=== PATIENT | male | born 1990 | race Caucasian/White ===

== ENCOUNTER 2022-11-30 07:02 | Emergency (ER) | payer OTHER ==
[~2022-11-30] VITALS: Ht 165.1 cm; Wt 68.2 kg
[~2022-11-30 07:02] MED LIST: PERC5TAB12 PO; tylenol #4 OR
[2022-11-30] MEDS ORDERED: ACETAMINOPHEN 500 MG TAB PO ONE (08:30)
[2022-11-30] MEDS ORDERED: HYDR-3713 PO (08:37)
[2022-11-30 08:50] VITALS: BP 123/79; TEMP 98.8; O2SAT 99
[2022-12-01] MEDS ORDERED: HYDR-3713 PO (00:19)
[2022-12-01] MEDS ORDERED: CLEO300C2 PO (05:01)
[2022-12-01] MEDS ORDERED: IBUP80TA PO (05:01)
== END 2022-11-30 08:58 | disposition home or self-care (01) ==
LOC: M ED 07:02
DX: K02.9 Dental caries, unspecified (principal); K08.89 Other specified disorders of teeth and supporting structures

== ENCOUNTER 2022-12-01 00:05 | Emergency (ER) | payer OTHER ==
[~2022-12-01] VITALS: Ht 167.6 cm; Wt 68.3 kg
[2022-12-01 00:05] VITALS: BP 129/83; TEMP 98.5; O2SAT 98
[~2022-12-01 00:05] MED LIST changes: +HYDR-3713 PO
[2022-12-01] MEDS ORDERED: HYDR-3713 PO (00:19)
[2022-12-01] MEDS ORDERED: OXYCODONE/APAP 5MG/325MG(HOME DOSE PACK) PO ONE (05:00)
[2022-12-01] MEDS ORDERED: KETOROLAC 60MG 2ML VIAL IM ONE (05:00)
[2022-12-01] MEDS ORDERED: CLINDAMYCIN 150MG CAPSULE PO ONE (05:00)
[2022-12-01] MEDS ORDERED: IBUP80TA PO (05:01)
[2022-12-01] MEDS ORDERED: CLEO300C2 PO (05:01)
== END 2022-12-01 05:43 | disposition home or self-care (01) ==
LOC: M ED 00:05
DX: K08.89 Other specified disorders of teeth and supporting structures (principal); K05.6 Periodontal disease, unspecified; F17.200 Nicotine dependence, unspecified, uncomplicated
CPT/HCPCS: 96372; 99282; J1885

== ENCOUNTER → 2023-11-11 | Outpatient (REF) ==
[~2023-11-11] MED LIST changes: +AMOX500C; +AMOX875T2 PO; +CLEO300C2 PO; +IBUP80TA PO; +KETO10TAB PO
== END ==
LOC: M LAB 12:50
PROVIDERS: ATTEND Nurse Practitioner Adult Health
DX: Z02.89 Encounter for other administrative examinations (principal)

== ENCOUNTER 2023-11-24 21:38 | Emergency (ER) | payer MEDICAID, OTHER ==
[~2023-11-24] VITALS: Ht 165.1 cm; Wt 63.6 kg
[2023-11-25] MEDS ORDERED: LIDOCAINE W/EPINEPHRINE 1% 20ML VIAL SC ONE (01:15)
[2023-11-25] MEDS ORDERED: AMOX875T2 PO (01:21)
[2023-11-25] MEDS: AUGMENTIN 875 MG TAB PO ONE (01:25)
[2023-11-25] MEDS: ACETAMINOPHEN 500 MG TAB PO ONE (01:26)
[2023-11-25 01:53] VITALS: BP 114/74; TEMP 97.2; O2SAT 98
== END 2023-11-25 02:13 | disposition home or self-care (01) ==
LOC: M ED 21:38
DX: S51.852A Open bite of left forearm, initial encounter (principal); W54.0XXA Bitten by dog, initial encounter; Y92.009 Unspecified place in unspecified non-institutional (private) residence as the place of occurrence of the external cause; Y93.89 Activity, other specified; Y99.9 Unspecified external cause status

== ENCOUNTER 2023-11-26 01:22 | Emergency (ER) | payer OTHER ==
[~2023-11-26] VITALS: Ht 165.1 cm; Wt 64.5 kg
[2023-11-26 04:30] VITALS: BP 125/75; TEMP 97.7; O2SAT 99
[2023-11-26] MEDS: BOOSTRIX VACCINE (TETANUS/DIPHTH/ACEL. PERTUSSIS) 0.5ML SYR IM.IMMUN ONE (04:59)
== END 2023-11-26 05:06 | disposition home or self-care (01) ==
LOC: M ED 01:22
DX: Z48.00 Encounter for change or removal of nonsurgical wound dressing (principal)

== ENCOUNTER 2023-11-30 22:42 | Emergency (ER) | payer OTHER ==
[~2023-11-30] VITALS: Ht 165.1 cm; Wt 66.0 kg
[2023-11-30 23:10] VITALS: BP 127/80; TEMP 98; O2SAT 99
== END 2023-12-01 02:32 | disposition left against medical advice (07) ==
LOC: M ED 22:42
DX: F22 Delusional disorders (principal); Z53.9 Procedure and treatment not carried out, unspecified reason

== ENCOUNTER 2023-12-01 10:17 | Inpatient (IN) | payer MEDICAID, OTHER ==
[~2023-12-01] VITALS: Ht 165.1 cm; Wt 61.9 kg
[2023-12-01] MEDS ORDERED: HOME MED LIST COMPLETE! XX SCH (12:50)
[2023-12-01 13:30] LABS: HEMOGLOBIN 14.9 g/dl (13.5-17.5); MEAN CORPUSCULAR HEMOGLOBIN 31.2 pg (27.0-33.0); MEAN CORPUSCULAR HGB CONC 34.7 g/dl (32.0-36.5); PLATELET COUNT, AUTOMATED 328 10^3/uL (150-450); RED BLOOD COUNT 4.78 10^6/uL (4.30-6.10); WHITE BLOOD COUNT 11.8 10^3/uL (4.0-10.0)
[2023-12-01 13:59] LABS: ETHYL ALCOHOL (ETHANOL) < 0.003 % (0.000-0.010)
[2023-12-01 14:01] LABS: ALBUMIN 4.7 G/DL (3.2-5.2); ALKALINE PHOSPHATASE 78 U/L (46-116); ALT/SGPT 16 U/L (7.0-40); AST/SGOT 11 U/L (<34); BILIRUBIN,DIRECT 0.3 MG/DL (<0.4); BILIRUBIN,TOTAL 0.7 MG/DL (0.3-1.2); BLOOD UREA NITROGEN 15 MG/DL (9-23); CALCIUM LEVEL 10.1 MG/DL (8.5-10.1); CARBON DIOXIDE LEVEL 28 MMOL/L (20-31); CHLORIDE LEVEL 102 MMOL/L (98-107); CREATININE FOR GFR 0.81 MG/DL (0.70-1.30); GLOMERULAR FILTRATION RATE > 60.0 (>60); GLUCOSE, FASTING 98 MG/DL (60-100); POTASSIUM SERUM 3.9 MMOL/L (3.5-5.1); SALICYLATE LEVEL < 3.0 MG/DL (<30); SODIUM LEVEL 137 MMOL/L (136-145); TOTAL PROTEIN 7.6 G/DL (5.7-8.2)
[2023-12-01 14:03] LABS: THYROID STIMULATING HORMONE 0.824 uIU/ML (0.55-4.78)
[2023-12-01 14:28] LABS: HIV 1&2 SCREEN NEGATIVE (NEGATIVE)
[2023-12-01 15:13] LABS: AMPHETAMINES LEVEL URINE NEGATIVE (NEGATIVE); BARBITURATES URINE NEGATIVE (NEGATIVE); BENZODIAZEPINES URINE NEGATIVE (NEGATIVE); COCAINE METABOLITE URINE NEGATIVE (NEGATIVE)
[2023-12-01 15:14] LABS: CANNABINOIDS URINE POSITIVE (NEGATIVE); METHADONE URINE NEGATIVE (NEGATIVE); OPIATES URINE NEGATIVE (NEGATIVE); PHENCYCLIDINE URINE NEGATIVE (NEGATIVE)
[2023-12-01] MEDS: OLANZapine ORAL DISINTEGRATING TAB 5MG PO ONE (18:30)
[2023-12-01] MEDS ORDERED: ACETAMINOPHEN TAB 650MG DOSE (2X325MG) PO PRN (21:00)
[2023-12-01] MEDS ORDERED: IBUPROFEN 400MG TAB PO PRN (21:00)
[2023-12-01] MEDS ORDERED: MAALOX 30 ML SUSP *UDC PO PRN (21:00)
[2023-12-01] MEDS ORDERED: diphenhydrAMINE 25MG CAP PO PRN (21:00)
[2023-12-01] MEDS ORDERED: MOM 30ML SUSPENSION UDC PO PRN (21:00)
[2023-12-01] MEDS ORDERED: traZODone 50 MG TAB PO PRN (21:00)
[2023-12-02 06:28] VITALS: BP 129/81; TEMP 97.7; O2SAT 95
[2023-12-02] MEDS: OLANZapine 5 MG TAB PO SCH (09:00)
[2023-12-02 17:55] VITALS: BP 137/85; TEMP 97.3
[2023-12-03 06:18] VITALS: BP 108/66; TEMP 98.6; O2SAT 100
[2023-12-03 18:24] VITALS: BP 110/74; TEMP 97.2
[2023-12-04 06:13] VITALS: BP 108/69; TEMP 98; O2SAT 100
[2023-12-04 16:29] VITALS: BP 135/73; TEMP 98.1; O2SAT 100
[2023-12-05 06:21] VITALS: BP 121/79; TEMP 97.7; O2SAT 100
[2023-12-05 16:21] VITALS: BP 116/88; TEMP 98; O2SAT 98
[2023-12-06 06:29] VITALS: BP 111/68; TEMP 98.3; O2SAT 100
[2023-12-06 16:44] VITALS: BP 130/74; TEMP 98; O2SAT 100
[2023-12-07 06:31] VITALS: BP 115/73; TEMP 96.8; O2SAT 100
[2023-12-07 16:08] VITALS: BP 114/78; TEMP 97.9; O2SAT 98
[2023-12-08 06:36] VITALS: BP 120/67; TEMP 97.9; O2SAT 100
[2023-12-08 18:57] VITALS: BP 127/78; TEMP 98
[2023-12-09 05:53] VITALS: BP 108/76; TEMP 97.8; O2SAT 100
[2023-12-10 06:41] VITALS: BP 108/65; TEMP 98.2; O2SAT 100
[2023-12-10 17:41] VITALS: BP 120/79; TEMP 98.2
[2023-12-11 06:30] VITALS: BP 152/78; TEMP 97.2; O2SAT 100
[2023-12-11 09:21] VITALS: BP 143/76; TEMP 97.4; O2SAT 100
[2023-12-11 18:54] VITALS: BP 136/83; TEMP 97.6; O2SAT 100
[2023-12-12 17:21] VITALS: BP 127/80; TEMP 97.6; O2SAT 100
[2023-12-13 06:22] VITALS: BP 115/64; TEMP 97.9; O2SAT 100
[2023-12-13 16:55] VITALS: BP 119/72; TEMP 97.4; O2SAT 100
[2023-12-14 06:23] VITALS: BP 115/73; TEMP 98.5; O2SAT 100
[2023-12-14 09:33] VITALS: BP 115/73; TEMP 98.5; O2SAT 100
[2023-12-14 18:05] VITALS: BP 137/87; TEMP 97.7; O2SAT 99
[2023-12-15 06:14] VITALS: BP 114/88; TEMP 98; O2SAT 100
[2023-12-15 18:04] VITALS: BP 110/82; TEMP 98.2
[2023-12-16 06:34] VITALS: BP 136/82; TEMP 97.3; O2SAT 97
[2023-12-16 18:24] VITALS: BP 140/81; TEMP 97.8
[2023-12-17 06:13] VITALS: BP 138/84; TEMP 98; O2SAT 99
[2023-12-17 17:38] VITALS: BP 130/82; TEMP 97.2; O2SAT 100
[2023-12-18 06:25] VITALS: BP 110/69; TEMP 98.4; O2SAT 100
[2023-12-18 18:42] VITALS: BP 121/78; TEMP 98.6; O2SAT 100
[2023-12-19 06:23] VITALS: BP 113/75; TEMP 97.1; O2SAT 96
[2023-12-19 16:42] VITALS: BP 139/80; TEMP 96.5; O2SAT 100
[2023-12-20 06:53] VITALS: BP 119/82; TEMP 97.8; O2SAT 98
[2023-12-20 17:42] VITALS: BP 145/95; TEMP 97.6; O2SAT 100
[2023-12-21 06:23] VITALS: BP 105/73; TEMP 97.8; O2SAT 100
[2023-12-21 17:10] VITALS: BP 136/86; TEMP 97.5; O2SAT 96
[2023-12-22 06:28] VITALS: BP 118/77; TEMP 97.9; O2SAT 100
[2023-12-22 19:49] VITALS: BP 138/89; TEMP 97.6
[2023-12-23 06:18] VITALS: BP 132/77; TEMP 97; O2SAT 100
[2023-12-23 17:21] VITALS: BP 125/89; TEMP 97.3; O2SAT 100
[2023-12-24 06:14] VITALS: BP 148/82; TEMP 97.4; O2SAT 100
[2023-12-24 18:39] VITALS: BP 135/90; TEMP 97.8
[2023-12-25 06:04] VITALS: BP 129/77; TEMP 97.9; O2SAT 100
[2023-12-25] MEDS: FLUoxetine 20MG CAP PO SCH (09:43)
[2023-12-25 18:23] VITALS: BP 136/83; TEMP 97.3; O2SAT 98
[2023-12-26 06:03] VITALS: BP 147/79; TEMP 97.1; O2SAT 99
[2023-12-26 15:29] VITALS: BP 128/62; TEMP 98.6; O2SAT 100
[2023-12-26] MEDS: OLANZapine 10 MG TAB PO SCH (20:36)
[2023-12-27 06:24] VITALS: BP 128/90; TEMP 97.4; O2SAT 99
[2023-12-27] MEDS: OLANZapine 5 MG TAB PO SCH (08:31)
[2023-12-27] MEDS: fluPHENAZine 5MG TABLET PO SCH (20:47)
[2023-12-28 06:23] VITALS: BP 128/79; TEMP 97; O2SAT 98
[2023-12-29 06:07] VITALS: BP 133/78; TEMP 97.5; O2SAT 100
[2023-12-29] MEDS: SERTRALINE HCL 50 MG TAB PO SCH (10:42)
[2023-12-29 18:37] VITALS: BP 128/78; TEMP 97.3; O2SAT 99
[2023-12-29] MEDS: OLANZapine 5 MG TAB PO SCH (20:18)
[2023-12-30 06:06] VITALS: BP 137/82; TEMP 97.3; O2SAT 100
[2023-12-30 16:06] VITALS: BP 143/87; TEMP 98.3; O2SAT 100
[2023-12-31 06:35] VITALS: BP 130/92; TEMP 97.1; O2SAT 100
[2023-12-31] MEDS: SERTRALINE HCL 25 MG TABLET PO SCH (08:54)
[2023-12-31 17:23] VITALS: BP 125/83; TEMP 97.6; O2SAT 99
[2024-01-01 06:41] VITALS: BP 119/81; TEMP 98; O2SAT 98
[2024-01-01] MEDS ORDERED: ZOLO100T PO (13:53)
[2024-01-01] MEDS ORDERED: OLAN1TAB16 PO (13:53)
[2024-01-01 17:32] VITALS: BP 142/87; TEMP 97.9; O2SAT 97
[2024-01-02 06:16] VITALS: BP 120/83; TEMP 97.2; O2SAT 100
[2024-01-02] MEDS: SERTRALINE 100 MG TAB PO SCH (09:09)
== END 2024-01-02 12:51 | disposition home or self-care (01) | DRG 751 ==
LOC: M ED 10:17 → M ED INP 20:56 → M PSY 23:08
PROVIDERS: ADMIT Psychiatry & Neurology Psychiatry; ATTEND Psychiatry & Neurology Child & Adolescent Psychiatry
DX: F29 Unspecified psychosis not due to a substance or known physiological condition (principal); F12.90 Cannabis use, unspecified, uncomplicated; S51.852D Open bite of left forearm, subsequent encounter; Z59.86 Financial insecurity; Z56.0 Unemployment, unspecified; Z63.5 Disruption of family by separation and divorce

== ENCOUNTER → 2024-01-16 | Outpatient (CLI) | payer OTHER ==
[~2024-01-16] MED LIST changes: +OLAN1TAB16 PO; +ZOLO100T PO
[2024-01-16 13:21] LABS: BASO # 0.1 10^3/uL (0.0-0.2); BASO % 1.1 % (0.0-1.0); EOS # 0.3 10^3/uL (0.0-0.5); EOS % 3.6 % (0.0-3.0); HEMATOCRIT 39.2 % (42.0-52.0); LYMPH # 1.7 10^3/uL (1.5-5.0); MEAN CORPUSCULAR HEMOGLOBIN 30.8 pg (27.0-33.0); MEAN CORPUSCULAR HGB CONC 33.2 g/dl (32.0-36.5); MEAN CORPUSCULAR VOLUME 92.9 fl (80.0-96.0); MONO % 10.7 % (2.0-8.0); NEUTROPHILS # 5.8 10^3/uL (1.5-8.5); NEUTROPHILS % 64.3 % (36.0-66.0); PLATELET COUNT, AUTOMATED 287 10^3/uL (150-450); RED BLOOD COUNT 4.22 10^6/uL (4.30-6.10); WHITE BLOOD COUNT 9.1 10^3/uL (4.0-10.0)
[2024-01-16 13:33] LABS: HEMOGLOBIN A1c 5.3 % (4.0-6.0)
[2024-01-16 14:01] LABS: ALBUMIN 3.8 G/DL (3.2-5.2); ALKALINE PHOSPHATASE 109 U/L (46-116); ALT/SGPT 110 U/L (7.0-40); AST/SGOT 49 U/L (<34); BILIRUBIN,TOTAL 0.3 MG/DL (0.3-1.2); BLOOD UREA NITROGEN 16 MG/DL (9-23); CALCIUM LEVEL 9.8 MG/DL (8.5-10.1); CARBON DIOXIDE LEVEL 29 MMOL/L (20-31); CHLORIDE LEVEL 107 MMOL/L (98-107); CHOLESTEROL LEVEL 216 MG/DL (<200); CREATININE FOR GFR 0.87 MG/DL (0.70-1.30); GLOMERULAR FILTRATION RATE > 60.0 (>60); GLUCOSE, FASTING 88 MG/DL (60-100); POTASSIUM SERUM 4.1 MMOL/L (3.5-5.1); SODIUM LEVEL 139 MMOL/L (136-145); TRIGLYCERIDES LEVEL 125 MG/DL (<150)
[2024-01-16 14:02] LABS: THYROID STIMULATING HORMONE 1.927 uIU/ML (0.55-4.78)
[2024-01-16 14:13] LABS: VITAMIN B12 LEVEL 403 PG/ML (211-911)
== END ==
LOC: M PLALAB 11:24
PROVIDERS: ATTEND Student in an Organized Health Care Education/Training Program
DX: Z00.00 Encounter for general adult medical examination without abnormal findings (principal); D72.829 Elevated white blood cell count, unspecified; F29 Unspecified psychosis not due to a substance or known physiological condition; R63.5 Abnormal weight gain

== ENCOUNTER → 2024-11-30 | Outpatient (REF) | payer OTHER | LOC: M SFHCPLAZ 12:37 | PROVIDERS: ATTEND Family Medicine | DX: E55.9 Vitamin D deficiency, unspecified (principal); Z13.21 Encounter for screening for nutritional disorder; R00.2 Palpitations; Z13.1 Encounter for screening for diabetes mellitus ==

== ENCOUNTER → 2024-11-30 | Outpatient (CLI) | payer OTHER ==
[2024-11-30 16:22] LABS: TOTAL 25(OH) VITAMIN D 33.3 NG/ML (20.0-100.0); VITAMIN B12 LEVEL 387.0 PG/ML (211-911)
[2024-11-30 16:24] LABS: FREE T4 1.24 NG/DL (0.89-1.76)
[2024-11-30 17:17] LABS: ESTIMATED AVERAGE GLUCOSE 108.0 MG/DL (60-110)
== END ==
LOC: M PLALAB 13:13
DX: E55.9 Vitamin D deficiency, unspecified (principal)

== ENCOUNTER 2024-12-04 02:29 | Emergency (ER) | payer OTHER ==
[~2024-12-04] VITALS: Ht 167.6 cm; Wt 76.1 kg
[2024-12-04 03:17] LABS: BASO # 0.0 10^3/uL (0.0-0.2); BASO % 0.3 % (0.0-1.0); EOS # 0.0 10^3/uL (0.0-0.5); EOS % 0.1 % (0.0-3.0); LYMPH # 1.3 10^3/uL (1.5-5.0); LYMPH % 13.7 % (24.0-44.0); MONO # 0.7 10^3/uL (0.0-0.8); MONO % 6.7 % (2.0-8.0); NEUTROPHILS # 7.6 10^3/uL (1.5-8.5); NEUTROPHILS % 78.9 % (36.0-66.0); PLATELET COUNT, AUTOMATED 277 10^3/uL (150-450)
[2024-12-04 03:29] LABS: INR 0.96
[2024-12-04 03:41] LABS: CK-MB VALUE MASS < 1.0 NG/ML (<3.6)
[2024-12-04 03:43] LABS: ALT/SGPT 12 U/L (7.0-40); AST/SGOT 17 U/L (<34); CALCIUM LEVEL 9.7 MG/DL (8.5-10.1); CARBON DIOXIDE LEVEL 25 MMOL/L (20-31); CHLORIDE LEVEL 103 MMOL/L (98-107); CPK CREATINE PHOSPHOKINASE 54 U/L (46-171); CREATININE FOR GFR 0.94 MG/DL (0.70-1.30); GLOMERULAR FILTRATION RATE > 90.0 (>60); POTASSIUM SERUM 3.6 MMOL/L (3.5-5.1); SODIUM LEVEL 144 MMOL/L (136-145)
[2024-12-04 04:50] VITALS: TEMP 98.6
[2024-12-04] MEDS ORDERED: ISOVUE-370 76% 100 ML VIAL As Ordered ONE (07:56)
[2024-12-04 09:29] LABS: ETHYL ALCOHOL (ETHANOL) < 0.003 % (0.000-0.010)
[2024-12-04 09:34] LABS: FREE T4 1.42 NG/DL (0.89-1.76)
[2024-12-04 09:39] LABS: CK-MB VALUE MASS < 1.0 NG/ML (<3.6); CPK CREATINE PHOSPHOKINASE 64 U/L (46-171)
[2024-12-04 10:48] LABS: KETONE, URINE AUTO RFX 1+ mg/dL (NEGATIVE); LEUKOCYTE ESTERASE UR AUTO RFX NEGATIVE (NEGATIVE); NITRITE, URINE AUTO RFX NEGATIVE (NEGATIVE); RBC, URINE AUTO RFX 2 /HPF (0-3); WBC, URINE AUTO RFX 1 /HPF (0-3)
[2024-12-04 10:49] LABS: MUCUS, URINE RFX SMALL (NEGATIVE); SQUAM EPITHELIAL CELL UR AURFX 0 /HPF (0-6)
[2024-12-04 11:09] LABS: AMPHETAMINES LEVEL URINE NEGATIVE (NEGATIVE); BARBITURATES URINE NEGATIVE (NEGATIVE); BENZODIAZEPINES URINE NEGATIVE (NEGATIVE); COCAINE METABOLITE URINE NEGATIVE (NEGATIVE); METHADONE URINE NEGATIVE (NEGATIVE); OPIATES URINE NEGATIVE (NEGATIVE); PHENCYCLIDINE URINE NEGATIVE (NEGATIVE)
[2024-12-04 11:10] LABS: CANNABINOIDS URINE POSITIVE (NEGATIVE)
[2024-12-04] MEDS ORDERED: HOME MED LIST COMPLETE! XX SCH (11:20)
[2024-12-04 12:00] VITALS: BP 122/75; O2SAT 95
[2024-12-04 12:02] LABS: Trichomonas vaginalis (AMP) NOT DETECTED (NEGATIVE)
[2024-12-04 12:25] LABS: GC DNA AMPLIFICATION NEGATIVE (NEGATIVE)
== END 2024-12-04 12:50 | disposition home or self-care (01) ==
LOC: M ED 02:29
DX: R07.9 Chest pain, unspecified (principal); R20.2 Paresthesia of skin; I45.10 Unspecified right bundle-branch block; R91.8 Other nonspecific abnormal finding of lung field
CPT/HCPCS: 36415; 70450; 71045; 71275; 80048; 80076; 80307; 81001; 81002; 82077; 82550; 82553; 83690; 84439; 84443; 84484; 85025; 85610; 87661; 87810; 87850; 93005; 99284; Q9967

== ENCOUNTER 2024-12-05 00:35 | Emergency (ER) | payer OTHER ==
[~2024-12-05] VITALS: Ht 167.6 cm; Wt 76.7 kg
[2024-12-05 04:23] LABS: PLATELET COUNT, AUTOMATED 278 10^3/uL (150-450)
[2024-12-05 04:35] LABS: ETHYL ALCOHOL (ETHANOL) < 0.003 % (0.000-0.010)
[2024-12-05 04:36] LABS: CPK CREATINE PHOSPHOKINASE 55 U/L (46-171)
[2024-12-05 04:37] LABS: SALICYLATE LEVEL < 3.0 MG/DL (<30)
[2024-12-05 04:45] LABS: ALT/SGPT 13 U/L (7.0-40); AST/SGOT 18 U/L (<34); CALCIUM LEVEL 10.1 MG/DL (8.5-10.1); CARBON DIOXIDE LEVEL 24 MMOL/L (20-31); CHLORIDE LEVEL 102 MMOL/L (98-107); CREATININE FOR GFR 0.85 MG/DL (0.70-1.30); GLOMERULAR FILTRATION RATE > 90.0 (>60); POTASSIUM SERUM 4.1 MMOL/L (3.5-5.1); SODIUM LEVEL 141 MMOL/L (136-145)
[2024-12-05 04:46] LABS: AMPHETAMINES LEVEL URINE NEGATIVE (NEGATIVE); BARBITURATES URINE NEGATIVE (NEGATIVE); BENZODIAZEPINES URINE NEGATIVE (NEGATIVE); COCAINE METABOLITE URINE NEGATIVE (NEGATIVE); METHADONE URINE NEGATIVE (NEGATIVE); OPIATES URINE NEGATIVE (NEGATIVE); PHENCYCLIDINE URINE NEGATIVE (NEGATIVE)
[2024-12-05 04:47] LABS: CANNABINOIDS URINE POSITIVE (NEGATIVE)
[2024-12-05 13:43] VITALS: TEMP 98.4
[2024-12-05 13:47] VITALS: BP 136/85; O2SAT 98
== END 2024-12-05 13:58 | disposition home or self-care (01) ==
LOC: M ED 00:35
DX: I82.611 Acute embolism and thrombosis of superficial veins of right upper extremity (principal)

== ENCOUNTER 2025-04-12 11:38 | Inpatient (IN) | payer OTHER, MEDICAID ==
[~2025-04-12] VITALS: Ht 165.1 cm; Wt 71.3 kg
[2025-04-12] MEDS ORDERED: HOME MED LIST COMPLETE! XX SCH (12:50)
[2025-04-12 14:11] LABS: PLATELET COUNT, AUTOMATED 315 10^3/uL (150-450)
[2025-04-12 15:20] LABS: ALT/SGPT 16 U/L (7.0-40); AST/SGOT 17 U/L (<34); CALCIUM LEVEL 10.5 MG/DL (8.5-10.1); CARBON DIOXIDE LEVEL 29 MMOL/L (20-31); CHLORIDE LEVEL 102 MMOL/L (98-107); CREATININE FOR GFR 0.79 MG/DL (0.70-1.30); ETHYL ALCOHOL (ETHANOL) < 0.003 % (0.000-0.010); GLOMERULAR FILTRATION RATE > 90.0 (>60); POTASSIUM SERUM 4.6 MMOL/L (3.5-5.1); SALICYLATE LEVEL < 3.0 MG/DL (<30); SODIUM LEVEL 143 MMOL/L (136-145)
[2025-04-12 15:53] LABS: AMPHETAMINES LEVEL URINE NEGATIVE (NEGATIVE); BARBITURATES URINE NEGATIVE (NEGATIVE); BENZODIAZEPINES URINE NEGATIVE (NEGATIVE); CANNABINOIDS URINE NEGATIVE (NEGATIVE); COCAINE METABOLITE URINE NEGATIVE (NEGATIVE); METHADONE URINE NEGATIVE (NEGATIVE); OPIATES URINE NEGATIVE (NEGATIVE); PHENCYCLIDINE URINE NEGATIVE (NEGATIVE)
[2025-04-12] MEDS ORDERED: ACETAMINOPHEN 325 MG TAB PO PRN (16:20)
[2025-04-12] MEDS ORDERED: MAALOX 30 ML SUSP *UDC PO PRN (16:20)
[2025-04-12] MEDS ORDERED: IBUPROFEN 400 MG TAB PO PRN (16:20)
[2025-04-12] MEDS ORDERED: traZODone 50 MG TAB PO PRN (16:20)
[2025-04-12 18:04] VITALS: BP 134/90; TEMP 97.8; O2SAT 99
[2025-04-13 06:26] VITALS: BP 126/86; TEMP 97.6; O2SAT 99
[2025-04-13] MEDS: SERTRALINE HCL 50 MG TAB PO SCH (10:33)
[2025-04-13 15:10] VITALS: BP 120/95; TEMP 97.1; O2SAT 97
[2025-04-14 06:20] VITALS: BP 121/82; TEMP 97.9; O2SAT 99
[2025-04-14 16:26] VITALS: BP 137/84; TEMP 97.6; O2SAT 97
[2025-04-15] MEDS ORDERED: BENZTROPINE 0.5 MG TAB PO PRN (05:35)
[2025-04-15 06:42] VITALS: BP 132/86; TEMP 97; O2SAT 100
[2025-04-15] MEDS: SERTRALINE 100 MG TAB PO SCH (09:37)
[2025-04-15 14:28] VITALS: BP 117/84; TEMP 98.5; O2SAT 98
[2025-04-16 15:16] VITALS: BP 120/88; TEMP 98.3; O2SAT 98
[2025-04-17 06:29] VITALS: BP 119/88; TEMP 97.6; O2SAT 100
[2025-04-17] MEDS: LURASIDONE HCL 20 MG TAB PO SCH (08:08)
[2025-04-17 15:15] VITALS: BP 127/82; TEMP 97.9; O2SAT 98
[2025-04-17] MEDS: MOM 30 ML SUSPENSION UDC PO PRN (21:58)
[2025-04-18 06:41] VITALS: BP 127/81; TEMP 97.5; O2SAT 98
[2025-04-18] MEDS: DOCUSATE SODIUM 100 MG CAPSULE PO PRN (09:57)
[2025-04-18 15:07] VITALS: BP 136/84; TEMP 97.4; O2SAT 98
[2025-04-18] MEDS: BISACODYL 5 MG TAB PO ONE (18:18)
[2025-04-18 20:39] VITALS: BP 136/84; TEMP 97.4; O2SAT 98
[2025-04-19 06:37] VITALS: BP 126/93; TEMP 96.9; O2SAT 99
[2025-04-19 15:05] VITALS: BP 132/70; TEMP 97.5; O2SAT 97
[2025-04-20 06:30] VITALS: BP 129/91; TEMP 97.8; O2SAT 98
[2025-04-20] MEDS: LURASIDONE HCL 40 MG TAB PO SCH (08:27)
[2025-04-20 17:17] VITALS: BP 114/78; TEMP 97.9; O2SAT 99
[2025-04-21 06:14] VITALS: BP 120/78; TEMP 97.1; O2SAT 96
[2025-04-21 14:28] VITALS: BP 123/81; TEMP 97.7; O2SAT 100
[2025-04-21 20:06] VITALS: BP 123/81; TEMP 97.7; O2SAT 100
[2025-04-22 06:24] VITALS: BP 126/80; TEMP 97; O2SAT 99
[2025-04-22] MEDS: PILL CUTTER 1 EACH XX PRN (08:15)
[2025-04-22] MEDS: SERTRALINE HCL 50 MG TAB PO SCH (08:15)
[2025-04-22 15:37] VITALS: BP 126/89; TEMP 97.2; O2SAT 99
[2025-04-23 06:22] VITALS: BP 125/71; TEMP 97.8; O2SAT 98
[2025-04-23 15:07] VITALS: BP 121/82; TEMP 97.4; O2SAT 99
[2025-04-23 19:48] VITALS: BP 121/82; TEMP 97.4; O2SAT 99
[2025-04-24 06:27] VITALS: BP 132/84; TEMP 97.2; O2SAT 99
[2025-04-24] MEDS: SERTRALINE HCL 25 MG TABLET PO SCH (08:33)
[2025-04-24] MEDS: SERTRALINE 100 MG TAB PO SCH (08:33)
[2025-04-24 15:15] VITALS: BP 123/77; TEMP 97.2; O2SAT 98
[2025-04-25 06:15] VITALS: BP 124/84; TEMP 97.3; O2SAT 100
[2025-04-25 18:12] VITALS: BP 154/83; TEMP 97.8
[2025-04-26 06:21] VITALS: BP 124/77; TEMP 97.2; O2SAT 98
[2025-04-26 15:13] VITALS: BP 126/79; TEMP 97.7; O2SAT 97
[2025-04-27 06:12] VITALS: BP 117/80; TEMP 97.3; O2SAT 98
[2025-04-27] MEDS ORDERED: COLA100C5 PO (09:46)
[2025-04-27] MEDS ORDERED: ZOLO100T PO (09:46)
[2025-04-27] MEDS ORDERED: LATU40TA2 PO (09:46)
[2025-04-27] MEDS ORDERED: SERT25TA21 PO (09:47)
== END 2025-04-27 12:43 | disposition home or self-care (01) | DRG 751 ==
LOC: M ED 11:38 → M ED INP 16:17 → M PSY 16:50
PROVIDERS: ADMIT General Practice; ATTEND General Practice
DX: F32.3 Major depressive disorder, single episode, severe with psychotic features (principal); R45.851 Suicidal ideations; F41.1 Generalized anxiety disorder; Z56.0 Unemployment, unspecified; G47.00 Insomnia, unspecified; F17.200 Nicotine dependence, unspecified, uncomplicated

== ENCOUNTER → 2025-05-11 | Outpatient (CLI) | payer OTHER ==
[~2025-05-11] MED LIST changes: +COLA100C5 PO; +LATU40TA2 PO; +SERT25TA21 PO
[2025-05-11 11:53] LABS: PLATELET COUNT, AUTOMATED 280 10^3/uL (150-450)
[2025-05-11 12:14] LABS: ALT/SGPT 28 U/L (7.0-40); AST/SGOT 20 U/L (<34); CALCIUM LEVEL 9.3 MG/DL (8.5-10.1); CARBON DIOXIDE LEVEL 30 MMOL/L (20-31); CHLORIDE LEVEL 105 MMOL/L (98-107); CHOLESTEROL LEVEL 191 MG/DL (<200); CHOLESTEROL RISK RATIO 3.36 (<5); CREATININE FOR GFR 0.83 MG/DL (0.70-1.30); GLOMERULAR FILTRATION RATE > 90.0 (>60); LDL CHOLESTEROL 116.0 MG/DL (<100); NON-HDL-C 134.2 MG/DL; POTASSIUM SERUM 4.6 MMOL/L (3.5-5.1); SODIUM LEVEL 141 MMOL/L (136-145); TRIGLYCERIDES LEVEL 91 MG/DL (<150)
== END ==
LOC: M PLALAB 09:20
PROVIDERS: ATTEND Student in an Organized Health Care Education/Training Program
DX: Z51.89 Encounter for other specified aftercare (principal)